=== PATIENT | male | born 1945 | race Caucasian/White ===

== ENCOUNTER → 2017-03-27 | Outpatient (CLI) | payer MEDICARE ==
[2017-03-27 17:14] LABS: INR 3.3 (<1.2); Prothrombin Time 31.8 sec (9.0-12.0)
== END | disposition home or self-care (01) ==
LOC: LABWHC1 16:43
PROVIDERS: ATTEND Dentist Periodontics
DX: Z51.81 Encounter for therapeutic drug level monitoring (principal); Z79.01 Long term (current) use of anticoagulants
CPT/HCPCS: 36415; 85610

== ENCOUNTER 2023-04-20 15:30 | Inpatient (IN) | payer MEDICAID ==
[2023-04-20] MEDS ORDERED: ARTIFICIAL TEARS-HYPROMELLOSE DROPS 15 ML BTL BOTH EYES PRN (16:11)
[2023-04-20] MEDS ORDERED: MORPHINE SULFATE 4 MG/ML SYRINGE IV PRN (16:11)
[2023-04-20] MEDS ORDERED: ACETAMINOPHEN SUPPOSITORY 650 MG SUPP RECTAL PRN (16:11)
[2023-04-20] MEDS ORDERED: ONDANSETRON 4 MG/2 ML VIAL IVP PRN (16:11)
[2023-04-20] MEDS ORDERED: DRY MOUTH SPRAY 44.3 SPRAY/44.3 ML SPRAY MUCOUS MEM PRN (16:11)
[2023-04-20] MEDS ORDERED: SCOPOLAMINE 1 MG/72 HR PATCH TRANSDERM SCH (16:15)
[2023-04-20] MEDS ORDERED: MELATONIN 5 MG TABLET PO PRN (16:18)
[2023-04-20] MEDS ORDERED: NICOTINE GUM (POLACRILEX) 2 MG GUM BUCCAL PRN (16:18)
[2023-04-20] MEDS ORDERED: guaiFENesin-Coden 100-10MG/5ML 10 ML CUP PO PRN (16:21)
[2023-04-20] MEDS: INSULIN ASPART (NovoLOG) 100 UNIT/ML VIAL SQ SCH ×2 (17:20→20:10)
[2023-04-20 19:41] LABS: Glucose,Whole Blood 141 mg/dL (70-110)
[2023-04-20] MEDS: NICOTINE 21MG/24HR PATCH TRANSDERM SCH (20:10)
[2023-04-20] MEDS: ALBUTEROL NEBULIZED 2.5 MG/3 ML INHALATION SCH (21:31)
[2023-04-21 05:57] LABS: Glucose,Whole Blood 143 mg/dL (70-110)
[2023-04-21] MEDS: INSULIN ASPART (NovoLOG) 100 UNIT/ML VIAL SQ SCH ×3 (05:58→16:36)
[2023-04-21] MEDS: NICOTINE 21MG/24HR PATCH TRANSDERM SCH ×2 (07:28→09:20)
[2023-04-21] MEDS: ALBUTEROL NEBULIZED 2.5 MG/3 ML INHALATION SCH ×4 (08:13→20:39)
[2023-04-21] MEDS: MORPHINE SULFATE 4 MG/ML SYRINGE IV PRN ×3 (09:20→18:48)
[2023-04-21 11:29] LABS: Glucose,Whole Blood 155 mg/dL (70-110)
[2023-04-21] MEDS: GLYCOPYRROLATE 0.2 MG/ML 2 ML VIAL IVP PRN (12:42)
--- NOTE | 2023-04-21 13:38 | P.HPIM ---
History of Present Illness H&P Date: 04/21/23 This is a 69-year-old male with medical history of congestive heart failure, moderate aortic stenosis severe pulmonary hypertension, chronic kidney disease and COPD patient presented to the hospital for progressive weakness and shortness of breath and worsening lower extremity edema. Patient recently moved to [place] to be set up with providers here. Patient does not really home oxygen he was found to be hypoxic on admission and has had progressive worsening shortness of breath and currently maintained on 4-5 L of oxygen via nasal cannula. Patient was treated for CHF exacerbation and also for acute COPD exacerbation. He was maintained and IV Lasix IV Solu-Medrol. Patient and family after discussion had wanted comfort care and patient was taken off of all active treatments and started on IV morphine drip which patient had refused. Evaluated family in the room today with his family at the bedside and discussed current options as far as comfort care and hospice. Family has agreed for informational session with hospice services whether patient remains in the hospital and opened GIP versus discharge to the [facility] with hospice in place will follow-up with the family and the patient. Currently patient reports no pain, he reports no shortness of breath at rest. He has diffuse weakness throughout and require assistance for eating/feeding. Patient does want to transition to end of life care. Patient does however want to remain on insulin for his blood sugar. Patient has been opened with hospice GIP receiving morphine IVP as needed. REVIEW OF SYSTEMS: CONSTITUTIONAL: No fever, no malaise, no fatigue. HEENT: No recent visual problems or hearing problems. Denied any sore throat. CARDIOVASCULAR: No chest pain, orthopnea, PND, no palpitations, no syncope. PULMONARY: Reports shortness of breath, no cough, no hemoptysis. GASTROINTESTINAL: No diarrhea, no nausea, no vomiting, no abdominal pain. NEUROLOGICAL: No headaches, no weakness, no numbness. HEMATOLOGICAL: Denies any bleeding or petechiae. GENITOURINARY: Denies any burning micturition, frequency, or urgency. MUSCULOSKELETAL/RHEUMATOLOGICAL: Denies any joint pain, swelling, or any muscle pain. ENDOCRINE: Denies any polyuria or polydipsia. The rest of the 14-point review of systems is negative. PHYSICAL EXAMINATION: GENERAL: The patient is alert and oriented x3, not in any acute distress. Well developed, well nourished. HEENT: Pupils are round and equally reacting to light. EOMI. No scleral icterus. No conjunctival pallor. Normocephalic, atraumatic. No pharyngeal erythema. No thyromegaly. CARDIOVASCULAR: S1 and S2 present. No murmurs, rubs, or gallops. PULMONARY: Diminished on 4L of oxygen. ABDOMEN: Soft, nontender, nondistended, normoactive bowel sounds. No palpable organomegaly. MUSCULOSKELETAL: No joint swelling or deformity. EXTREMITIES: No cyanosis, clubbing, or pedal edema. NEUROLOGICAL: Diffuse generalized weakness. SKIN: No rashes. Assessment End of life hospice care Acute on chronic congestive heart failure systolic dysfunction Acute hypoxic respiratory failure secondary to combined CHF and COPD exacerbation on 4L of oxygen Acute COPD exacerbation Acute kidney injury on chronic kidney disease Hyperkalemia due to the LALO Cardiomyopathy with ejection fraction 45-50% Nonsustained V. tach Valvular heart disease with aortic regurgitation, mitral regurgitation and tricuspid regurgitation. Severe pulmonary hypertension Hypervolemic hyponatremia improved with IV Lasix Coagulopathy secondary to Coumadin INR 3.0 History of DVT with supratherapeutic INR on Coumadin coagulopathy secondary to Coumadin History of COPD Nicotine dependence DO NOT RESUSCITATE DO NOT INTUBATE Plan Patient has been opened with hospice inpatient receiving IV morphine as needed on Scopalamine patch and recommend to add rubinol if needed The impression and plan of care has been dictated by Roxana Ortiz, Nurse Practitioner as directed. Dr. Carolann MD I have performed a history and physical examination and medical decision making of this patient, discussed the same with the dictator, and agree with the dictators assessment and plan as written, documented as a scribe. Based on total visit time, I have performed more than 50% of this visit. Past Medical History Past Medical History: Heart Failure, Myocardial Infarction ([place]), Renal Disease Additional Past Medical History / Comment(s): hypotension Last Myocardial Infarction Date:: unknown History of Any Multi-Drug Resistant Organisms: None Reported Past Surgical History: Unable to Obtain Past Anesthesia/Blood Transfusion Reactions: No Reported Reaction Past Psychological History: No Psychological Hx Reported Smoking Status: Current every day smoker Past Alcohol Use History: None Reported Past Drug Use History: None Reported Medications and Allergies Home Medications Medication Instructions Recorded Confirmed Type Albuterol Sulfate [Albuterol 1 - 2 puff PO RT-Q6H PRN 04/12/23 04/20/23 History Sulfate Hfa] Cholecalciferol [Vitamin D3 (25 50 mcg PO WE 04/12/23 04/20/23 History Mcg = 1000 Iu)] Fluticasone/Umeclidin/Vilanter 1 puff INHALATION RT-DAILY 04/12/23 04/20/23 History [Trelegy Ellipta 100-62.5-25] Ginkgo Biloba [place] Extract [Ginkgo 125 mg PO DAILY 04/12/23 04/20/23 History Biloba] Losartan Potassium [Cozaar] 25 mg PO BID 04/12/23 04/20/23 History Magnesium 200 mg PO DAILY 04/12/23 04/20/23 History Sodium Polystyrene Sulfonate 15 gm PO MOWEFR 04/12/23 04/20/23 History Powder Packet Spironolactone [Aldactone] 25 mg PO DAILY 04/12/23 04/20/23 History Torsemide [Demadex] 40 mg PO DAILY 04/12/23 04/20/23 History Warfarin Sodium 5 mg PO DAILY 04/12/23 04/20/23 History calcitrioL [Calcitriol] 0.25 mcg PO MOWEFR 04/12/23 04/20/23 History carvediloL [Coreg] 12.5 mg PO DAILY 04/12/23 04/20/23 History Allergies Allergy/AdvReac Type Severity Reaction Status Date / Time No Known Allergies Allergy Verified 04/12/23 14:52 Physical Exam Vitals: Vital Signs Temp Pulse Resp BP Pulse Ox 04/21/23 07:56 98.3 F 83 22 174/66 94 L 04/21/23 00:59 97.6 F 67 18 162/55 98 04/20/23 19:38 98.4 F 69 18 160/54 96 Intake and Output 04/20/23 04/21/23 04/21/23 22:59 06:59 14:59 Output Total 400 Balance -400 Output: Urine 400 Other: Voiding Method External Catheter # Voids 8 Weight 170.8 kg Results Labs: Abnormal Lab Results - Last 24 Hours (Table) 04/20/23 04/21/23 Range/Units 19:40 05:51 POC Glucose (mg/dL) 141 H 143 H (70-110) mg/dL Assessment and Plan Time with Patient: Less than 30
[2023-04-21] MEDS: LORazepam 2 MG/ML INJ IV PRN (16:13)
[2023-04-22] MEDS: GLYCOPYRROLATE 0.2 MG/ML 2 ML VIAL IVP PRN ×3 (01:20→15:33)
[2023-04-22] MEDS: MORPHINE SULFATE 4 MG/ML SYRINGE IV PRN ×3 (01:45→11:10)
[2023-04-22] MEDS: ATROPINE OPHTH SOLN 1% 5ML BTL SUBLINGUAL PRN ×2 (03:49→21:07)
[2023-04-22] MEDS: LORazepam 2 MG/ML INJ IV PRN ×2 (07:59→15:33)
[2023-04-22 08:24] VITALS: BP 117/56; PULSE 100; TEMP 98.4
[2023-04-22] MEDS: ALBUTEROL NEBULIZED 2.5 MG/3 ML INHALATION SCH ×4 (09:31→21:06)
[2023-04-22] MEDS: NICOTINE 21MG/24HR PATCH TRANSDERM SCH (10:14)
[2023-04-22] MEDS ORDERED: MORPHINE SULFATE (100 MG/2 ML) 100 MG in SODIUM CHLORIDE 0.9% 100 ML IV SCH (11:30)
--- NOTE | 2023-04-22 12:49 | P.PN ---
Subjective Progress Note Date: 04/22/23 This is a 69-year-old male with medical history of congestive heart failure, moderate aortic stenosis severe pulmonary hypertension, chronic kidney disease and COPD patient presented to the hospital for progressive weakness and shortness of breath and worsening lower extremity edema. Patient recently moved to [place] to be set up with providers here. Patient does not really home oxygen he was found to be hypoxic on admission and has had progressive worsening shortness of breath and currently maintained on 4-5 L of oxygen via nasal cannula. Patient was treated for CHF exacerbation and also for acute COPD exacerbation. He was maintained and IV Lasix IV Solu-Medrol. Patient and family after discussion had wanted comfort care and patient was taken off of all active treatments and started on IV morphine drip which patient had refused. Evaluated family in the room today with his family at the bedside and discussed current options as far as comfort care and hospice. Family has agreed for informational session with hospice services whether patient remains in the hospital and opened GIP versus discharge to the [facility] with hospice in place will follow-up with the family and the patient. Currently patient reports no pain, he reports no shortness of breath at rest. He has diffuse weakness throughout and require assistance for eating/feeding. Patient does want to transition to end of life care. Patient does however want to remain on insulin for his blood sugar. Patient has been opened with hospice GIP receiving morphine IVP as needed. 04/22/2023 Patient evaluated today resting in bed on the medical floor. He is being given IV ativan IV morphine. Patient resting comfortably. On scopalamine patch and added rubinol as needed for the excess secretions. At this time he is not responding to verbal or tactile stimuli. Patient will be advanced to morphine gtt today. Review of Systems Unable to complete patient is sedated and resting comfortably in bed. PHYSICAL EXAMINATION: GENERAL: The patient is sedated. not in any acute distress. Well developed, well nourished. HEENT: Pupils are round and equally reacting to light. EOMI. No scleral icterus. No conjunctival pallor. Normocephalic, atraumatic. No pharyngeal erythema. No thyromegaly. CARDIOVASCULAR: S1 and S2 present. No murmurs, rubs, or gallops. PULMONARY: Diminished on 4L of oxygen. ABDOMEN: Soft, nontender, nondistended, normoactive bowel sounds. No palpable organomegaly. MUSCULOSKELETAL: No joint swelling or deformity. EXTREMITIES: No cyanosis, clubbing, or pedal edema. NEUROLOGICAL:Unable to assess. SKIN: LE mottling. Assessment End of life hospice care Acute on chronic congestive heart failure systolic dysfunction Acute hypoxic respiratory failure secondary to combined CHF and COPD exacerbation on 4L of oxygen Acute COPD exacerbation Acute kidney injury on chronic kidney disease Hyperkalemia due to the LALO Cardiomyopathy with ejection fraction 45-50% Nonsustained V. tach Valvular heart disease with aortic regurgitation, mitral regurgitation and tricuspid regurgitation. Severe pulmonary hypertension Hypervolemic hyponatremia improved with IV Lasix Coagulopathy secondary to Coumadin INR 3.0 History of DVT with supratherapeutic INR on Coumadin coagulopathy secondary to Coumadin History of COPD Nicotine dependence DO NOT RESUSCITATE DO NOT INTUBATE Plan Patient has been opened with hospice inpatient Patient will be advanced to morphine gtt today. The impression and plan of care has been dictated by Roxana Ortiz Nurse Practitioner as directed. Dr. Carolann MD I have performed a history and physical examination and medical decision making of this patient, discussed the same with the dictator, and agree with the dictators assessment and plan as written, documented as a scribe. Based on total visit time, I have performed more than 50% of this visit. Objective - Vital Signs Vital signs: Vital Signs Temp 98.4 F 04/22/23 08:00 Pulse 100 04/22/23 08:00 Resp 18 04/22/23 08:00 BP 117/56 04/22/23 08:00 Pulse Ox 98 04/21/23 21:45 FiO2 Intake & Output 04/21/23 04/22/23 04/22/23 18:59 06:59 18:59 Output Total 1000 800 Balance -1000 -800 Output: Urine 1000 800 Other: Voiding Method External Catheter External Catheter - Labs Labs: Abnormal Lab Results - Last 24 Hours (Table) 04/21/23 Range/Units 11:28 POC Glucose (mg/dL) 155 H (70-110) mg/dL Assessment and Plan Time with Patient: Less than 30
[2023-04-23] MEDS: GLYCOPYRROLATE 0.2 MG/ML 2 ML VIAL IVP PRN
[2023-04-23 06:41] VITALS: RESP 6
[2023-04-23] MEDS: ALBUTEROL NEBULIZED 2.5 MG/3 ML INHALATION SCH (07:43)
--- NOTE | 2023-04-25 09:03 | P.DS ---
Providers Date of admission: 04/20/23 16:28 Attending physician: Britni Rai Primary care physician: Marlee Bartholomew Hospital Course: Final Diagnosis End of life hospice care Acute on chronic congestive heart failure systolic dysfunction Acute hypoxic respiratory failure secondary to combined CHF and COPD exacerbation on 4L of oxygen Acute COPD exacerbation Acute kidney injury on chronic kidney disease Hyperkalemia due to the LALO Cardiomyopathy with ejection fraction 45-50% Nonsustained V. tach Valvular heart disease with aortic regurgitation, mitral regurgitation and tricuspid regurgitation. Severe pulmonary hypertension Hypervolemic hyponatremia improved with IV Lasix Coagulopathy secondary to Coumadin INR 3.0 History of DVT with supratherapeutic INR on Coumadin coagulopathy secondary to Coumadin History of COPD Nicotine dependence DO NOT RESUSCITATE DO NOT INTUBATE Patient on 04/23/23 at 0736 Preliminary cause of congestive heart failure Hospital Course This is a 69-year-old male with medical history of congestive heart failure, mod erate aortic stenosis severe pulmonary hypertension, chronic kidney disease and COPD patient presented to the hospital for progressive weakness and shortness of breath and worsening lower extremity edema. Patient recently moved to [place] to be set up with providers here. Patient does not really home oxygen he was found to be hypoxic on admission and has had progressive worsening shortness of breath and currently maintained on 4-5 L of oxygen via nasal cannula. Patient was treated for CHF exacerbation and also for acute COPD exacerbation. He was maintained and IV Lasix IV Solu-Medrol. Patient and family after discussion had wanted comfort care and patient was taken off of all active treatments and started on IV morphine drip which patient had refused. Patient was evaluated by hospice and opened as general inpatient hospice. on 04/23/2023 on 0736. Thank you for allowing us to participate in the care of this patient. The impression and plan of care has been dictated by Roxana Ortiz Nurse Practitioner as directed. Dr. Carolann MD I have performed a history and physical examination and medical decision making of this patient, discussed the same with the dictator, and agree with the dictators assessment and plan as written, documented as a scribe. Based on total visit time, I have performed more than 50% of this visit. Plan - Discharge Summary New Discharge Prescriptions: No Action calcitrioL [Calcitriol] 0.25 mcg PO MOWEFR Warfarin Sodium 5 mg PO DAILY Torsemide [Demadex] 40 mg PO DAILY carvediloL [Coreg] 12.5 mg PO DAILY Magnesium 200 mg PO DAILY Ginkgo Biloba [place] Extract [Ginkgo Biloba] 125 mg PO DAILY Cholecalciferol [Vitamin D3 (25 Mcg = 1000 Iu)] 50 mcg PO WE Spironolactone [Aldactone] 25 mg PO DAILY Losartan Potassium [Cozaar] 25 mg PO BID Fluticasone/Umeclidin/Vilanter [Trelegy Ellipta 100-62.5-25] 1 puff INHALATION RT-DAILY Albuterol Sulfate [Albuterol Sulfate Hfa] 1 - 2 puff PO RT-Q6H PRN PRN Reason: Shortness Of Breath Sodium Polystyrene Sulfonate Powder Packet 15 gm PO MOWEFR Discharge Medication List Albuterol Sulfate [Albuterol Sulfate Hfa] 1 - 2 puff PO RT-Q6H PRN 04/12/23 [History] Cholecalciferol [Vitamin D3 (25 Mcg = 1000 Iu)] 50 mcg PO WE 04/12/23 [History] Fluticasone/Umeclidin/Vilanter [Trelegy Ellipta 100-62.5-25] 1 puff INHALATION RT-DAILY 04/12/23 [History] Ginkgo Biloba [place] Extract [Ginkgo Biloba] 125 mg PO DAILY 04/12/23 [History] Losartan Potassium [Cozaar] 25 mg PO BID 04/12/23 [History] Magnesium 200 mg PO DAILY 04/12/23 [History] Sodium Polystyrene Sulfonate Powder Packet 15 gm PO MOWEFR 04/12/23 [History] Spironolactone [Aldactone] 25 mg PO DAILY 04/12/23 [History] Torsemide [Demadex] 40 mg PO DAILY 04/12/23 [History] Warfarin Sodium 5 mg PO DAILY 04/12/23 [History] calcitrioL [Calcitriol] 0.25 mcg PO MOWEFR 04/12/23 [History] carvediloL [Coreg] 12.5 mg PO DAILY 04/12/23 [History] Discharge Disposition: - Preliminary Cause of Preliminary Cause of : Congestive heart failure
== END 2023-04-23 09:17 | disposition expired | DRG 951 ==
LOC: 4SSUR 16:28
PROVIDERS: ADMIT Hospitalist; ATTEND Hospitalist
DX: Z51.5 Encounter for palliative care (principal); I50.23 Acute on chronic systolic (congestive) heart failure; J96.01 Acute respiratory failure with hypoxia; E87.1 Hypo-osmolality and hyponatremia; I42.9 Cardiomyopathy, unspecified; J44.1 Chronic obstructive pulmonary disease with (acute) exacerbation; N17.9 Acute kidney failure, unspecified; I47.20 Ventricular tachycardia, unspecified; Z66 Do not resuscitate; I27.20 Pulmonary hypertension, unspecified; N18.9 Chronic kidney disease, unspecified; R79.1 Abnormal coagulation profile; T45.515A Adverse effect of anticoagulants, initial encounter; E87.5 Hyperkalemia; I08.3 Combined rheumatic disorders of mitral, aortic and tricuspid valves; I25.2 Old myocardial infarction; E87.70 Fluid overload, unspecified; Z86.718 Personal history of other venous thrombosis and embolism; Z79.899 Other long term (current) drug therapy; X58.XXXA Exposure to other specified factors, initial encounter